=== PATIENT | male | born 1945 | race Caucasian/White ===

== ENCOUNTER 2017-08-01 11:52 | Emergency (ER) | payer BC, MEDICARE ==
[2017-08-01] MEDS ORDERED: CEPHALEXIN 500 MG CAPSULE PO STA (12:02)
--- NOTE | 2017-08-01 12:09 | Emergency Department Record ---
History of Present Illness - General Stated complaint: INJ RT HAND Time Seen by Provider: 08/01/17 12:01 Source: Patient Mode of Arrival: Ambulatory Limitations: No limitations - History of Present Illness Initial comments: 72 yo male injured his right thumb and index finger just prior to arrival. He was using a table saw and a board kicked back into his thumb and index causing a laceration. No changes in function or ROM on the fingers. He is up to date on immunizations. MD Complaint: Joint pain, Other (Right thumb and index finger injury) -: Minutes(s) Location: Right History of Same: No Radiation: Distal Quality: Aching Consistency: Constant Improves with: Nothing Worsens with: Nothing Associated Symptoms: Denies other symptoms - Related Data Allergies Allergy/AdvReac Type Severity Reaction Status Date / Time pneumococcal vaccine AdvReac feels sick Verified 08/01/17 12:10 Review of Systems Constitutional: Denies: Chills, Fever, Malaise Eyes: Denies: Eye discharge ENT: Denies: Congestion, Throat pain Respiratory: Denies: Cough Cardiovascular: Denies: Chest pain, Syncope Endocrine: Denies: Fatigue Gastrointestinal: Denies: Abdominal pain, Diarrhea, Nausea, Vomiting Genitourinary: Denies: Dysuria, Frequency Musculoskeletal: Reports: Arthralgia, Joint swelling Skin: Reports: Other (laceration). Denies: Bruising, Change in color Neurological: Denies: Headache Psychiatric: Denies: Anxiety Hematological/Lymphatic: Denies: Blood Clots, Easy bleeding, Easy bruising, Swollen glands Past Medical History - SOCIAL HISTORY Smoking Status: Never smoker Drug Use: None - RESPIRATORY Hx Respiratory Disorders: No - CARDIOVASCULAR Hx Cardio Disorders: Yes Hx Hypertension: Yes - NEURO Hx Neuro Disorders: No - GI Hx GI Disorders: No - Hx Genitourinary Disorders: No - ENDOCRINE Hx Endocrine Disorders: No - MUSCULOSKELETAL Hx Musculoskeletal Disorders: No - PSYCH Hx Psych Problems: No - HEMATOLOGY/ONCOLOGY Hx Hematology/Oncology Disorders: No Physical Exam - General General Appearance: Alert, Oriented x3, Cooperative, No acute distress Limitations: No limitations - Head Head exam: Atraumatic, Normal inspection - Eye Eye exam: Normal appearance. negative: Conjunctival injection - ENT ENT exam: Normal exam Ear exam: Normal external inspection Nasal Exam: Normal inspection Mouth exam: Normal external inspection - Neck Neck exam: Normal inspection - Cardiovascular Cardiovascular Exam: Regular rate, Normal rhythm, Normal heart sounds Peripheral Pulses: 2+: Radial (R) - Rectal Rectal exam: Deferred - exam: Deferred - Extremities Extremities exam: Other (thumb laceration 2cm, index laceration 1.5cm). negative: Normal inspection - Back Back exam: Reports: Normal inspection - Neurological Neurological exam: Alert, Normal gait, Oriented X3, Reflexes normal - Psychiatric Psychiatric exam: Normal affect, Normal mood Course - Reevaluation(s) Reevaluation #1: 08/01/17 13:17 XR demonstrated non displaced fractures of the first and second fingers The patient has had multiple surgeries by Dr Gonzalez in the past Given the open fractures Dr Gonzalez was paged or environmental field professional for him 08/01/17 13:[address] Gonzalez. He is not in town or available. He does recommend wash out in the OR. 08/01/17 13:30 The patient requests [facility] for transfer. No environmental field professional for hand surgery at [facility] per Dr Mckeon [facility] ED will be contacted I SW Dr Keating. No on-call hand surgery at [facility] today I called [facility]. Hand surgery has multiple traumas that will not allow timely care and recommends other institution. 08/01/17 13:55 I Called [facility] ED He is accepted for transfer by dr Castellanos at [facility] for evaluation and hand surgery consultation The patient has been kept NPO, Given antibiotics, and the wounds were thoroughly cleaned and dressed. XR's were sent with the patient He is stable for transfer by car. Disposition Disposition: Transfer Clinical Impression: Open fracture Thumb laceration Qualifiers: Encounter type: initial encounter Damage to nail status: with damage Foreign body presence: without foreign body Laterality: right Qualified Code(s): S61.111A - Laceration without foreign body of right thumb with damage to nail, initial encounter Laceration of index finger Qualifiers: Encounter type: initial encounter Damage to nail status: with damage Foreign body presence: without foreign body Laterality: right Qualified Code(s): S61.310A - Laceration without foreign body of right index finger with damage to nail, initial encounter Disposition: Acute Care Hospital Transfer Transfer To: [facility] Reason For Transfer: Open finger fractures Accepting Physician: Emanuel Time Discussed w/Accepting Physician: 14:08 Condition: (1) Good Additional Instructions: Go directed to the [facility] ED for evaluation Do not eat or drink Forms: Patient Portal Access Time of Disposition: 13:59 Quality - Quality Measures Quality Measures: N/A - Blood Pressure Screening Does Patient Have Any of the Following: No Blood Pressure Classification: Pre-Hypertensive BP Reading Systolic Measurement: 159 Diastolic Measurement: 86 Screening for High Blood Pressure: < Pre-Hypertensive BP, F/U Documented > [ G8950] Pre-Hypertensive Follow-up Interventions: Referral to alternative/primary care provider.
--- NOTE | 2017-08-02 08:55 | RADIOLOGY REPORT ---
DATE: 08/01/2017 at 12:38 p.m. EXAM: RIGHT HAND. HISTORY: Laceration to the first and second digits. Evaluate for wood splinters/foreign bodies. TECHNIQUE: Three views of the right hand were obtained. COMPARISON: None. ENCOUNTER: Initial. FINDINGS: There is soft tissue laceration involving the distal aspects of the thumb and index finger at the level of the distal phalanges. There is a nondisplaced transverse fracture at the base of the first distal phalanx. There is a nondisplaced oblique fracture within the midshaft of the second distal phalanx. There is overlying soft tissue laceration consistent with open fractures. There is no visible foreign body. Bandage material overlies the thumb and index finger. There are mild, diffuse arthritic changes within the hand and first carpometacarpal joint. IMPRESSION: 1. SOFT TISSUE LACERATION INVOLVING THE DISTAL THUMB AND INDEX FINGER WITH NO VISIBLE FOREIGN BODY. 2. NONDISPLACED TRANSVERSE FRACTURE AT THE BASE OF THE FIRST DISTAL PHALANX AND NONDISPLACED OBLIQUE FRACTURE WITHIN THE MIDSHAFT OF THE SECOND DISTAL PHALANX. THERE IS OVERLYING SOFT TISSUE LACERATION CONSISTENT WITH OPEN FRACTURES. JOB NUMBER: [id number] [facility]
== END 2017-08-01 14:27 | disposition short-term general hospital (02) ==
LOC: ER 11:52
DX: S62.524B Nondisplaced fracture of distal phalanx of right thumb, initial encounter for open fracture (principal); S62.660B Nondisplaced fracture of distal phalanx of right index finger, initial encounter for open fracture; W31.2XXA Contact with powered woodworking and forming machines, initial encounter; I10 Essential (primary) hypertension; Z87.891 Personal history of nicotine dependence
CPT/HCPCS: 99285

== ENCOUNTER 2017-08-03 09:42 | Emergency (ER) | payer MEDICARE ==
--- NOTE | 2017-08-03 09:52 | Emergency Department Record ---
History of Present Illness - General Stated Complaint: RECHECK HAND Time Seen by Provider: 08/03/17 09:51 Source: Patient, Family Mode of Arrival: Ambulatory Limitations: No limitations - History of Present Illness Initial Commments: 72 yo male presents for a recheck of a thumb and index finger injury. He lacerated the index and thumb with the kick back of a board on a table saw. He had open fractures and was sent to [facility] for hand surgery evaluation. He is on antibiotics. He reports he was not able to get into his local hand surgeon today and his PCP requested a recheck in the ED. The patient denies fever and his pain is controlled. -: Days(s) (2) Extremity Location: Right: Hand Place: Home Context: Accidental Associated Symptoms: None Treatments Prior to Arrival: Bandage - Naseem Coma Scale Eye Response: (4) Open spontaneously Motor Response: (6) Obeys commands Verbal Response: (5) Oriented [place] Total: 15 - Related Data Hx Tetanus Toxoid Vaccination: Yes Year of Tetanus Vaccination: 2015 Allergies Allergy/AdvReac Type Severity Reaction Status Date / Time pneumococcal vaccine AdvReac feels sick Verified 08/01/17 12:10 Review of Systems Constitutional: Denies: Chills, Fever, Weakness Eyes: Denies: Eye discharge ENT: Denies: Congestion, Throat pain Respiratory: Denies: Cough Cardiovascular: Denies: Chest pain, Syncope Endocrine: Denies: Fatigue Gastrointestinal: Denies: Abdominal pain, Diarrhea, Nausea, Vomiting Genitourinary: Denies: Dysuria, Frequency Musculoskeletal: Reports: As per HPI, Arthralgia Skin: Reports: As per HPI. Denies: Bruising Neurological: Denies: Headache Psychiatric: Denies: Anxiety Hematological/Lymphatic: Denies: Blood Clots, Easy bleeding, Easy bruising, Swollen glands Past Medical History - SOCIAL HISTORY Smoking Status: Never smoker Drug Use: None - RESPIRATORY Hx Respiratory Disorders: No - CARDIOVASCULAR Hx Cardio Disorders: Yes Hx Hypertension: Yes - NEURO Hx Neuro Disorders: No - GI Hx GI Disorders: No - Hx Genitourinary Disorders: No - ENDOCRINE Hx Endocrine Disorders: No - MUSCULOSKELETAL Hx Musculoskeletal Disorders: No - PSYCH Hx Psych Problems: No - HEMATOLOGY/ONCOLOGY Hx Hematology/Oncology Disorders: No Family Medical History Family Hx Comment (NOT TO BE USED IN PLACE OF ITEMS BELOW): Mom - Parkinsons Physical Exam - General General Appearance: Alert, Oriented x3, Cooperative, No acute distress Limitations: No limitations - Head Head exam: Atraumatic, Normal inspection - Eye Eye exam: Normal appearance. negative: Conjunctival injection, Scleral icterus - ENT ENT exam: Normal exam Ear exam: Normal external inspection Nasal Exam: Normal inspection Mouth exam: Normal external inspection - Neck Neck exam: Normal inspection - Cardiovascular Cardiovascular Exam: Regular rate, Normal rhythm, Normal heart sounds Peripheral Pulses: 2+: Radial (R) - Rectal Rectal exam: Deferred - exam: Deferred - Extremities Extremities exam: Tenderness Image of Hand: 1 - mild thumb bruising and mild swelling from trauma, no abnormal warmth or redness, no pus or signs of infection. - Neurological Neurological exam: Alert, Oriented X3 - Psychiatric Psychiatric exam: Normal affect, Normal mood - Skin Skin exam: Dry, Intact, Normal color, Warm Course - Reevaluation(s) Reevaluation #1: The wounds were thoroughly cleaned and redressed No signs of infection at this time We discussed the follow up next available with his hand surgeon 08/03/17 16:36 The chart was referred was faxed as a referral to Dr Gonzalez 08/03/17 16:37 Disposition Disposition: Discharge Clinical Impression: Encounter for wound re-check Disposition: Home, Self-Care Condition: (1) Good Additional Instructions: Call and follow up with Dr Montanez next available appointment Continue your antibiotics Forms: Patient Portal Access Time of Disposition: 10:13 Quality - Quality Measures Quality Measures: N/A - Blood Pressure Screening Does Patient Have Any of the Following: Active Dx of HTN Blood Pressure Classification: Hypertensive Reading Systolic Measurement: 178 Diastolic Measurement: 106 Screening for High Blood Pressure: Patient Exclusion, Hx of HTN [G9744]
== END 2017-08-03 10:50 | disposition home or self-care (01) ==
LOC: ER 09:42
DX: S61.011D Laceration without foreign body of right thumb without damage to nail, subsequent encounter (principal)
CPT/HCPCS: 99282

== ENCOUNTER 2018-12-04 11:27 | Emergency (ER) | payer MEDICARE ==
--- NOTE | 2018-12-04 12:56 | Emergency Department Record ---
History of Present Illness - General Chief Complaint: Laceration(s) Stated Complaint: RT HAND LACERATION Time Seen by Provider: 12/04/18 11:50 Source: Patient Mode of Arrival: Ambulatory Limitations: No limitations - History of Present Illness Initial Commments: pt cut R hand on a nail Onset/Timin -: Minutes(s) Extremity Location: Right: Hand Place: Home Context: Accidental Treatments Prior to Arrival: Bandage - [place] Coma Scale Eye Response: (4) Open spontaneously Motor Response: (6) Obeys commands Verbal Response: (5) Oriented Nase[place] Total: 15 - Related Data Hx Tetanus Toxoid Vaccination: Yes Year of Tetanus Vaccination: 2016 Patient Tetanus UTD (within 5 yrs): Yes Home Medications Medication Instructions Recorded Confirmed Last Taken Amlodipine Besylate [Norvasc] 5 mg PO DAILY 12/04/18 12/04/18 12/04/18 Clonidine HCl 0.1 mg PO ASDIR 12/04/18 12/04/18 12/04/18 Losartan/Hydrochlorothiazide 1 tab PO DAILY 12/04/18 12/04/18 12/04/18 [Losartan-Hctz 100-25 mg Tab] Allergies Allergy/AdvReac Type Severity Reaction Status Date / Time pneumococcal vaccine AdvReac feels sick Verified 12/04/18 11:40 Travel Screening - Travel/Exposure Within Last 30 Days Have you traveled within the last 30 days?: No - Travel/Exposure Within Last Year Have you traveled outside the [place] in the last year?: No - Additonal Travel Details Have you been exposed to anyone with a communicable illness?: No - Travel Symptoms Symptom Screening: None Review of Systems Reviewed: No additional complaints except as noted below Constitutional: Reports: As per HPI. Denies: Chills, Fever, Malaise, Night sweats, Weakness, Weight change Eyes: Reports: As per HPI. Denies: Eye discharge, Eye pain, Photophobia, Vision change ENT: Reports: As per HPI. Denies: Congestion, Dental pain, Ear pain, Epistaxis, Hearing loss, Throat pain Respiratory: Reports: As per HPI. Denies: Cough, Dyspnea, Hemoptysis, Stridor, Wheezes Cardiovascular: Reports: As per HPI. Denies: Arrhythmia, Chest pain, Dyspnea on exertion, Edema, Murmurs, Orthopnea, Palpitations, Paroxysmal nocturnal dyspnea, Rheumatic Fever, Syncope Endocrine: Reports: As per HPI. Denies: Fatigue, Heat or cold intolerance, Polydipsia, Polyuria Gastrointestinal: Reports: As per HPI. Denies: Abdominal pain, Constipation, Diarrhea, Hematemesis, Hematochezia, Melena, Nausea, Vomiting Genitourinary: Reports: As per HPI. Denies: Dysuria, Frequency, Hematuria, Incontinence, Retention, Testicular pain, Testicular mass, Urgency Musculoskeletal: Reports: As per HPI. Denies: Arthralgia, Back pain, Gout, Joint swelling, Myalgia, Neck pain Skin: Reports: As per HPI. Denies: Bruising, Change in color, Change in hair/nails, Lesions, Pruritus, Rash Neurological: Reports: As per HPI. Denies: Abnormal gait, Confusion, Headache, Numbness, Paresthesias, Seizure, Tingling, Tremors, Vertigo, Weakness Psychiatric: Reports: As per HPI. Denies: Anxiety, Auditory hallucinations, Depression, Homicidal thoughts, Suicidal thoughts, Visual hallucinations Hematological/Lymphatic: Reports: As per HPI. Denies: Anemia, Blood Clots, Easy bleeding, Easy bruising, Swollen glands Past Medical History - SOCIAL HISTORY Smoking Status: Never smoker Alcohol Use: None Drug Use: None - RESPIRATORY Hx Respiratory Disorders: No - CARDIOVASCULAR Hx Cardio Disorders: Yes Hx Hypertension: Yes - NEURO Hx Neuro Disorders: No - GI Hx GI Disorders: No - Hx Genitourinary Disorders: Yes Hx Renal Disease: Yes (stage 3) - ENDOCRINE Hx Endocrine Disorders: No - MUSCULOSKELETAL Hx Musculoskeletal Disorders: Yes Hx Gout: Yes - PSYCH Hx Psych Problems: No - HEMATOLOGY/ONCOLOGY Hx Hematology/Oncology Disorders: No Family Medical History Any Significant Family History?: Yes Family Hx Comment (NOT TO BE USED IN PLACE OF ITEMS BELOW): Mom - Parkinsons Physical Exam - General General Appearance: Alert, Oriented x3, Cooperative, No acute distress - Head Head exam: Normal inspection - Eye Eye exam: Normal appearance, PERRL, EOMI Pupils: Normal accommodation - ENT ENT exam: Normal exam, Mucous membranes moist, Normal external ear exam, Normal orophraynx Ear exam: Normal external inspection. negative: External canal tenderness Nasal Exam: Normal inspection. negative: Discharge, Sinus tenderness Mouth exam: Normal external inspection, Tongue normal Teeth exam: Normal inspection. negative: Dental caries Throat exam: Normal inspection. negative: Tonsillar erythema, Tonsillar exudate - Neck Neck exam: Normal inspection, Full ROM. negative: Tenderness - Respiratory Respiratory exam: Normal lung sounds bilaterally. negative: Respiratory distress - Cardiovascular Cardiovascular Exam: Regular rate, Normal rhythm, Normal heart sounds - GI/Abdominal GI/Abdominal exam: Soft, Normal bowel sounds. negative: Tenderness - Rectal Rectal exam: Deferred - exam: Deferred - Extremities Extremities exam: Normal inspection, Full ROM, Normal capillary refill, Tenderness Image of Hand: 1 - 3.5cm lac - Back Back exam: Reports: Normal inspection, Full ROM. Denies: Muscle spasm, Rash noted, Tenderness - Neurological Neurological exam: Alert, CN II-XII intact, Normal gait, Oriented X3 - Psychiatric Psychiatric exam: Normal affect, Normal mood - Skin Skin exam: Dry, Intact, Normal color, Warm Type of lesion: Laceration Distribution of rash: RUE Course Vital Signs 12/04/18 11:43 Temperature 97.7 F Pulse Rate 57 L Respiratory 18 Rate Blood Pressure 123/69 Pulse Ox 98 Disposition Disposition: Discharge Clinical Impression: Laceration of hand Qualifiers: Encounter type: initial encounter Foreign body presence: without foreign body Laterality: right Qualified Code(s): S61.411A - Laceration without foreign body of right hand, initial encounter Disposition: Home, Self-Care Condition: (1) Good Instructions: Laceration (ED), Care For Your Stitches (ED) Additional Instructions: follow up with family doctor. return sooner if worse. stitches out in 10 days Quality - Quality Measures Quality Measures: N/A - Blood Pressure Screening Does Patient Have Any of the Following: No Blood Pressure Classification: Pre-Hypertensive BP Reading Systolic Measurement: 123 Diastolic Measurement: 69 Screening for High Blood Pressure: < Pre-Hypertensive BP, F/U Documented > [G8950] Pre-Hypertensive Follow-up Interventions: Follow-up with rescreen every year. Laceration - Other - Time Out Informed consent:: Informed consent obtained Confirmed first & last name, , procedure, correct site?: Yes - Location Location of laceration:: Right, Palmar Laceration located on:: Hand Length of laceration:: 3.5 Length of laceration:: cm - Clean and Prep Laceration cleaning method:: Cleansed, Copious Irrigation Laceration cleaning agent:: Normal SalineChelsie - Local Anesthetic Lidocaine used:: 1% Lidocaine dose:: 2 mL EMLA cream used?: No - Medication Medicated for procedure?: No - Procedural Detail Tissue detail:: Torn Foreign body in the wound?: No Undermining was preformed?: No Stent applied?: No [place] applied?: No Retention suture(s) applied?: No Skin suture pattern:: Interrupted Suture material/size:: 5-0: Nylon Number of skin sutures:: 7 Neurovascular intact?: Yes - Post Procedural Detail Complications:: No Procedure Tolerated by Patient:: Well
== END 2018-12-04 13:30 | disposition home or self-care (01) ==
LOC: ER 11:27
DX: S61.411A Laceration without foreign body of right hand, initial encounter (principal); I10 Essential (primary) hypertension; W45.0XXA Nail entering through skin, initial encounter
CPT/HCPCS: 12002; 99283

== ENCOUNTER 2018-12-14 09:52 | Emergency (ER) | payer MEDICARE ==
--- NOTE | 2018-12-14 09:57 | Emergency Department Record ---
History of Present Illness - General Stated Complaint: SUTURE REMOVAL Time Seen by Provider: 12/14/18 09:53 Source: Patient Mode of arrival: Ambulatory Limitations: No limitations - History of Present Illness Initial Comments: 73 yo male presents for suture removal on the right hand from a 12/04 injury. No complaints with healing. No concerns with infection. MD Complaint: Suture/staple removal, Wound re-check -: Days(s) Initial Visit For: Laceration Returns Today for: Staple/stitch removal, Wound recheck Symptoms Since Prior Visit: No new symptoms Associated Symptoms: None - Related Data Allergies Allergy/AdvReac Type Severity Reaction Status Date / Time pneumococcal vaccine AdvReac feels sick Verified 12/04/18 11:40 Review of Systems Constitutional: Denies: Chills, Fever Respiratory: Denies: Cough Gastrointestinal: Denies: Diarrhea, Nausea, Vomiting Musculoskeletal: Denies: Arthralgia, Myalgia Skin: Denies: Bruising, Change in color, Rash Neurological: Denies: Numbness, Tingling Hematological/Lymphatic: Denies: Easy bleeding, Easy bruising Past Medical History - SOCIAL HISTORY Smoking Status: Never smoker Drug Use: None - RESPIRATORY Hx Respiratory Disorders: No - CARDIOVASCULAR Hx Cardio Disorders: Yes Hx Hypertension: Yes - NEURO Hx Neuro Disorders: No - GI Hx GI Disorders: No - Hx Genitourinary Disorders: Yes Hx Renal Disease: Yes (stage 3) - ENDOCRINE Hx Endocrine Disorders: No - MUSCULOSKELETAL Hx Musculoskeletal Disorders: Yes Hx Gout: Yes - PSYCH Hx Psych Problems: No - HEMATOLOGY/ONCOLOGY Hx Hematology/Oncology Disorders: No Family Medical History Family Hx Comment (NOT TO BE USED IN PLACE OF ITEMS BELOW): Mom - Parkinsons Physical Exam - General General Appearance: Alert, Oriented x3, Cooperative, No acute distress Limitations: No limitations - Head Head exam: Atraumatic, Normal inspection - ENT ENT exam: Normal exam Ear exam: Normal external inspection Nasal Exam: Normal inspection Mouth exam: Normal external inspection - Neck Neck exam: Normal inspection - Cardiovascular Peripheral Pulses: 2+: Radial (R) - Rectal Rectal exam: Deferred - exam: Deferred - Extremities Extremities exam: Full ROM, Other (Healing laceration without complications). negative: Joint swelling, Tenderness - Neurological Neurological exam: Alert, Oriented X3 - Psychiatric Psychiatric exam: Normal affect, Normal mood - Skin Skin exam: Dry, Intact, Normal color, Warm Course - Reevaluation(s) Reevaluation #1: 12/14/18 09:56 Healing without complication Sutures removed without difficulty Disposition Disposition: Discharge Clinical Impression: Encounter for removal of sutures Disposition: Home, Self-Care Condition: (1) Good Instructions: Stitches Removal (ED) Additional Instructions: Return if you have any concerns with the continues healing of the hand Forms: Patient Portal Access Time of Disposition: 09:56 Quality - Quality Measures Quality Measures: N/A - Blood Pressure Screening Does Patient Have Any of the Following: Active Dx of HTN Blood Pressure Classification: Pre-Hypertensive BP Reading Systolic Measurement: 122 Diastolic Measurement: 64 Screening for High Blood Pressure: Patient Exclusion, Hx of HTN [G9744]
== END 2018-12-14 10:15 | disposition home or self-care (01) ==
LOC: ER 09:52
DX: Z48.02 Encounter for removal of sutures (principal)

== ENCOUNTER 2019-01-14 12:18 | Emergency (ER) | payer MEDICARE ==
[2019-01-14] MEDS ORDERED: TOPICAL LIDOCAINE W/ EPI 5 ML TOP ONE (12:35)
--- NOTE | 2019-01-14 12:41 | Emergency Department Record ---
History of Present Illness - General Chief Complaint: Fall Injury Stated Complaint: FALL Time Seen by Provider: 01/14/19 12:24 Source: Patient Mode of Arrival: Ambulatory Limitations: No limitations - History of Present Illness Initial Comments: The patient is here due to falling 4 feet off a ladder about an hour ago. He is not sure why he fell but does not believe he passed out. The patient has a hx of hypotension and does get lightheaded frequently. The patient denies hitting his head or having any neck pain or any LOC. The patient also denies any CP, SOB, or sweating prior or since falling but he is having R posterior rib pain and mild L wrist pain. He did hit his face during the fall and did sustain a small laceration to his L upper lip. His Td is UTD. MD Complaint: Fall Onset/Timin -: Minutes(s) Fall From: From height (distance) When Fall Occurred: Just prior to arrival Fall Witnessed: Yes, by family Place Fall Occurred: Other Loss of Consciousness: None Prolonged Down Time?: No Symptoms Prior to Fall: None Location: Face, Mouth Severity: Mild Severity scale (1-10): 4 Quality: Aching Associated Symptoms: Denies - [place] Com[place] Scale Eye Response: (4) Open spontaneously Motor Response: (6) Obeys commands Verbal Response: (5) Oriented [place] Total: 15 - Related Data Home Medications Medication Instructions Recorded Confirmed Last Taken Losartan Potassium 50 mg PO DAILY 01/14/19 01/14/19 Unknown Previous Rx's Medication Instructions Recorded Amoxicillin 500 mg PO TID #9 capsule 01/14/19 Allergies Allergy/AdvReac Type Severity Reaction Status Date / Time pneumococcal vaccine AdvReac feels sick Verified 01/14/19 12:28 Travel Screening - Travel/Exposure Within Last 30 Days Have you traveled within the last 30 days?: No Review of Systems Constitutional: Denies: Chills, Fever Eyes: Denies: Eye discharge ENT: Denies: Congestion Respiratory: Denies: Cough, Dyspnea Past Medical History - SOCIAL HISTORY Smoking Status: Never smoker Alcohol Use: None Drug Use: None - RESPIRATORY Hx Respiratory Disorders: No - CARDIOVASCULAR Hx Cardio Disorders: Yes Hx Hypertension: Yes - NEURO Hx Neuro Disorders: No - GI Hx GI Disorders: No - Hx Genitourinary Disorders: Yes Hx Renal Disease: Yes (stage 3) - ENDOCRINE Hx Endocrine Disorders: No - MUSCULOSKELETAL Hx Musculoskeletal Disorders: Yes Hx Gout: Yes - PSYCH Hx Psych Problems: No - HEMATOLOGY/ONCOLOGY Hx Hematology/Oncology Disorders: No Family Medical History Any Significant Family History?: No Family Hx Comment (NOT TO BE USED IN PLACE OF ITEMS BELOW): Mom - Parkinsons Physical Exam - General General Appearance: Alert, Oriented x3, Cooperative, No acute distress - Head Head exam: Atraumatic, Normocephalic, Normal inspection Image of Face/Head: 1 - 1 cm lac. - Eye Eye exam: Normal appearance, PERRL - ENT ENT exam: negative: Normal exam Teeth exam: negative: Dental tenderness # (There is no dental tenderness or loose teeth.) Throat exam: Normal inspection. negative: Tonsillar erythema, Tonsillar exudate - Neck Neck exam: Normal inspection, Full ROM. negative: Meningismus, Tenderness (There is no Cspine tenderness to palpation. The patient has normal cervical flexion and extension with no pain.) - Respiratory Respiratory exam: Normal lung sounds bilaterally, Chest wall tenderness (There is R posterior inferior rib tenderness.). negative: Respiratory distress - Cardiovascular Cardiovascular Exam: Regular rate, Normal rhythm, Normal heart sounds - GI/Abdominal GI/Abdominal exam: Soft, Normal bowel sounds. negative: Tenderness - Extremities Extremities exam: Normal inspection, Full ROM, Normal capillary refill, Tenderness (There is mild L wrist tenderness mainly over the mid dorsal carpals. There is pain with full wrist extension.). negative: Pedal edema Image of Full Body: 1 - Area of rib pain and tenderness. Image of Hand: 1 - Area of pain and tenderness. - Back Back exam: Reports: Normal inspection. Denies: Paraspinal tenderness, Vertebral tenderness - Neurological Neurological exam: Alert, Normal gait, Oriented X3. negative: Abnormal gait, Altered, Motor sensory deficit - Skin Skin exam: negative: Rash Course Vital Signs 01/14/19 12:23 Pulse Rate 51 L Respiratory 18 Rate Blood Pressure 132/70 Pulse Ox 98 - Reevaluation(s) Reevaluation #1: Procedure note: The L lip lac was anesth. with 1 cc Lido 1%. The lac was cleansed with betadine and sterile saline. The lac was superficial and clearly does not communicate with the inner mucosa lac. The lac was closed with 3 5.0 nylon sutures. There were no complications. 01/14/19 13:24 Reevaluation #2: The patient is doing very well at this time and denies any QURESHI, neck pain, mid back pain, AP or SOB. He ONLY has R rib pain with movement. I did discuss the wrist xrays and larson believe the patient has a Triquetral fx so we will splint the patient and have his F/U with one of his hand surgeons. 01/14/19 14:08 Reevaluation #3: The patient is doing very well at discharge. He is up walking with no problems or any pain. 01/14/19 14:24 Medical Decision Making - Data Complexity MDM Data: Labs Ordered and/or Reviewed, X-Ray Ordered and/or Reviewed, EKG Orde red and/or Reviewed - Lab Data Result diagrams: 01/14/19 12:45 01/14/19 12:45 - EKG Data -: EKG Interpreted by Me EKG: No Acute Changes (NSR at 55, neg ST-T changes, Pos PVC.) - Radiology Data Radiology results: Report reviewed (R ribs: Neg L wrist: poss triquetral fx.) Disposition Disposition: Discharge Clinical Impression: Laceration of lip Qualifiers: Encounter type: initial encounter Qualified Code(s): S01.511A - Laceration wi thout foreign body of lip, initial encounter Triquetral chip fracture Qualifiers: Encounter type: initial encounter Fracture type: closed Laterality: left Qualified Code(s): S62.112A - Displaced fracture of triquetrum [cuneiform] bone, left wrist, initial encounter for closed fracture Disposition: Home, Self-Care Condition: (2) Stable Instructions: Laceration (ED), Wrist Fracture in Adults (ED) Additional Instructions: Please take Tylenol for pain and rest. Please ice and elevate the L wrist when possible for the next 3 days. Keep the lip laceration dry for 2 days and then have the sutures removed in 5-7 days. Take the Amox. as directed and follow up with one of your hand surgeons next week. Return to the ER for any worsening symptoms or pain. Prescriptions: Amoxicillin 500 mg PO TID #9 capsule Forms: Patient Portal Access Time of Disposition: 14:12 Quality - Quality Measures Quality Measures: N/A - Blood Pressure Screening View Details: Yes Does Patient Have Any of the Following: No Blood Pressure Classification: Pre-Hypertensive BP Reading Systolic Measurement: 132 Diastolic Measurement: 70 Screening for High Blood Pressure: < Pre-Hypertensive BP, F/U Documented > [G8950] Pre-Hypertensive Follow-up Interventions: Referral to alternative/primary care provider.
[2019-01-14 12:54] LABS: ABSOLUTE NEUTROPHIL COUNT 4.46; BASO % 0.4 % (0-6); EOS % 6.2 % (0-6); GRAN % 64.3 % (47-80); HEMATOCRIT 36.9 % (42.0-52.0); HEMOGLOBIN 12.8 gm/dl (14.0-18.0); LYMPH % 18.3 % (16-45); MEAN CELL VOLUME 85.4 fl (81-97); MEAN CORPUSCULAR HEMOGLOBIN 29.6 pg (27-33); MEAN CORPUSCULAR HGB CONC 34.7 g/dl (32-36); MEAN PLATELET VOLUME 8.8 fl (7.4-10.4); MONO % 10.8 % (0-9); PLATELET COUNT 224 K/uL (130-400); RED BLOOD COUNT 4.32 M/uL (4.40-5.70); RED CELL DISTRIBUTION WIDTH 13.5 % (11.5-14.5); WHITE BLOOD COUNT W/O DIFF 6.9 K/uL (4.2-12.2)
[2019-01-14 13:05] LABS: BILIRUBIN,TOTAL 0.5 mg/dL (0.2-1.0); CREATININE 1.7 mg/dL (0.7-1.2); TOTAL PROTEIN 7.1 g/dL (6.6-8.7)
[2019-01-14 13:10] LABS: ALB/GLOB RATIO 1.4 (1.1-1.8); ALBUMIN 4.2 g/dL (4.0-5.0)
--- NOTE | 2019-01-17 08:33 | RADIOLOGY REPORT ---
EXAM: LEFT WRIST, THREE VIEWS HISTORY: FALL. LEFT WRIST PAIN. TECHNIQUE: AP, oblique and lateral views of the left wrist were obtained. Comparison: None. Encounter: Initial. FINDINGS: There is normal bone mineralization. On the oblique view there is subtle linear lucency near the dorsal medial margin of the triquetrum. A nondisplaced fracture is difficult to exclude. Correlation with physical examination for point tenderness in this region is recommended. Otherwise, no convincing evidence of fracture nor dislocation. There are mild degenerative changes scattered throughout the wrist and visualized hand. There is a small well corticated ossific density projecting near the dorsal margin of the junction of the proximal and distal carpal rows. Mild posterior soft tissue swelling is possible. IMPRESSION: 1. ON THE OBLIQUE VIEW THERE IS SUBTLE LUCENCY NEAR THE DORSAL MEDIAL CORTEX OF THE TRIQUETRUM. NONDISPLACED FRACTURE NOT EXCLUDED. NO OTHER OSSEOUS EVIDENCE OF FRACTURE. CORRELATION WITH PHYSICAL EXAMINATION IS RECOMMENDED. 2. CHRONIC APPEARING OSSIFIC DENSITY PROJECTING NEAR THE DORSAL MARGIN OF THE JUNCTION OF THE PROXIMAL AND DISTAL CARPAL ROWS. 3. MILD DIFFUSE DEGENERATIVE CHANGES. JOB NUMBER: [id number] [facility]
--- NOTE | 2019-01-17 08:38 | RADIOLOGY REPORT ---
EXAM: RIGHT RIBS WITH PA CHEST HISTORY: PAIN IN POSTERIOR LOWER RIGHT RIBS. TECHNIQUE: AP and oblique views of the right ribs are obtained. A PA view of the chest was also obtained. Comparison: None. FINDINGS: There is normal bone mineralization. No definite acute right rib fracture. No lytic or blastic bone lesion. Degenerative end plate changes are scattered throughout the visualized spine. Facet degenerative changes are noted within the visualized lower lumbar spine. The heart is not enlarged and the pulmonary vasculature is nondilated. The lungs and pleural spaces are clear with the exception of mild biapical pleural and parenchymal scarring. IMPRESSION: 1. NO DEFINITE ACUTE RIGHT RIB FRACTURE. 2. NO EVIDENCE OF ACUTE CARDIOPULMONARY DISEASE. JOB NUMBER: [id number] [facility]
== END 2019-01-14 14:33 | disposition home or self-care (01) ==
LOC: ER 12:18
DX: S62.112A Displaced fracture of triquetrum [cuneiform] bone, left wrist, initial encounter for closed fracture (principal); S01.511A Laceration without foreign body of lip, initial encounter; R07.81 Pleurodynia; W11.XXXA Fall on and from ladder, initial encounter; I10 Essential (primary) hypertension; I95.9 Hypotension, unspecified
CPT/HCPCS: 12011; 80053; 85025; 93005; 93010; 99284

== ENCOUNTER 2019-01-19 08:34 | Emergency (ER) | payer MEDICARE ==
--- NOTE | 2019-01-19 08:50 | Emergency Department Record ---
History of Present Illness - General Chief Complaint: Suture removal Stated Complaint: STICH REMOVED Time Seen by Provider: 01/19/19 08:44 Source: Patient, RN notes reviewed Mode of arrival: Ambulatory - History of Present Illness Initial Comments: incision on face looks good MD Complaint: Suture/staple removal - Related Data Previous Rx's Medication Instructions Recorded Amoxicillin 500 mg PO TID #9 capsule 01/14/19 Allergies Allergy/AdvReac Type Severity Reaction Status Date / Time pneumococcal vaccine AdvReac feels sick Verified 01/14/19 12:28 Review of Systems Reviewed: No additional complaints except as noted below Constitutional: Reports: As per HPI. Denies: Chills, Fever, Malaise, Night sweats, Weakness, Weight change Eyes: Reports: As per HPI. Denies: Eye discharge, Eye pain, Photophobia, Vision change ENT: Reports: As per HPI. Denies: Congestion, Dental pain, Ear pain, Epistaxis, Hearing loss, Throat pain Respiratory: Reports: As per HPI. Denies: Cough, Dyspnea, Hemoptysis, Stridor, Wheezes Cardiovascular: Reports: As per HPI. Denies: Arrhythmia, Chest pain, Dyspnea on exertion, Edema, Murmurs, Orthopnea, Palpitations, Paroxysmal nocturnal dyspnea, Rheumatic Fever, Syncope Endocrine: Reports: As per HPI. Denies: Fatigue, Heat or cold intolerance, Polydipsia, Polyuria Gastrointestinal: Reports: As per HPI. Denies: Abdominal pain, Constipation, Diarrhea, Hematemesis, Hematochezia, Melena, Nausea, Vomiting Genitourinary: Reports: As per HPI. Denies: Dysuria, Frequency, Hematuria, Incontinence, Retention, Testicular pain, Testicular mass, Urgency Musculoskeletal: Reports: As per HPI. Denies: Arthralgia, Back pain, Gout, Joint swelling, Myalgia, Neck pain Skin: Reports: As per HPI. Denies: Bruising, Change in color, Change in hair/nails, Lesions, Pruritus, Rash Neurological: Reports: As per HPI. Denies: Abnormal gait, Confusion, Headache, Numbness, Paresthesias, Seizure, Tingling, Tremors, Vertigo, Weakness Psychiatric: Reports: As per HPI. Denies: Anxiety, Auditory hallucinations, Depression, Homicidal thoughts, Suicidal thoughts, Visual hallucinations Hematological/Lymphatic: Reports: As per HPI. Denies: Anemia, Blood Clots, Easy bleeding, Easy bruising, Swollen glands Past Medical History - SOCIAL HISTORY Smoking Status: Never smoker Drug Use: None - RESPIRATORY Hx Respiratory Disorders: No - CARDIOVASCULAR Hx Cardio Disorders: Yes Hx Hypertension: Yes - NEURO Hx Neuro Disorders: No - GI Hx GI Disorders: No - Hx Genitourinary Disorders: Yes Hx Renal Disease: Yes (stage 3) - ENDOCRINE Hx Endocrine Disorders: No - MUSCULOSKELETAL Hx Musculoskeletal Disorders: Yes Hx Gout: Yes - PSYCH Hx Psych Problems: No - HEMATOLOGY/ONCOLOGY Hx Hematology/Oncology Disorders: No Family Medical History Family Hx Comment (NOT TO BE USED IN PLACE OF ITEMS BELOW): Mom - Parkinsons Physical Exam - General General Appearance: Alert, Oriented x3, Cooperative, No acute distress - Head Head exam: Normal inspection - Eye Eye exam: Normal appearance, PERRL Pupils: Normal accommodation - ENT ENT exam: Normal exam, Mucous membranes moist, Normal external ear exam, Normal orophraynx, TM's normal bilaterally Ear exam: Normal external inspection. negative: External canal tenderness Nasal Exam: Normal inspection. negative: Discharge, Sinus tenderness Mouth exam: Normal external inspection, Tongue normal Teeth exam: Normal inspection. negative: Dental caries Throat exam: Normal inspection. negative: Tonsillar erythema, Tonsillar exudate - Neck Neck exam: Normal inspection, Full ROM. negative: Tenderness - Respiratory Respiratory exam: Normal lung sounds bilaterally. negative: Respiratory distress - Cardiovascular Cardiovascular Exam: Regular rate, Normal rhythm, Normal heart sounds - GI/Abdominal GI/Abdominal exam: Soft, Normal bowel sounds. negative: Tenderness - Rectal Rectal exam: Deferred - exam: Deferred - Extremities Extremities exam: Normal inspection, Full ROM, Normal capillary refill. negative: Tenderness - Back Back exam: Reports: Normal inspection, Full ROM. Denies: Muscle spasm, Rash noted, Tenderness - Neurological Neurological exam: Alert, Normal gait, Oriented X3, Reflexes normal - Psychiatric Psychiatric exam: Normal affect, Normal mood - Skin Skin exam: Dry, Intact, Normal color, Warm Course Vital Signs 01/19/19 08:43 Temperature 97.6 F Pulse Rate [ 55 L Right] Respiratory 20 Rate Blood Pressure 144/72 [Left Arm] Pulse Ox 99 - Reevaluation(s) Reevaluation #1: 01/19/19 08:47 No signs of infection and healing well Disposition Clinical Impression: Visit for suture removal Disposition: Home, Self-Care Condition: (1) Good Instructions: Stitches Removal (ED) Quality - Quality Measures Quality Measures: N/A - Blood Pressure Screening Does Patient Have Any of the Following: No, Active Dx of HTN Blood Pressure Classification: Hypertensive Reading Systolic Measurement: 144 Diastolic Measurement: 72 Screening for High Blood Pressure: Patient Exclusion, Hx of HTN [G9744]
== END 2019-01-19 08:58 | disposition home or self-care (01) ==
LOC: ER 08:34
DX: Z48.02 Encounter for removal of sutures (principal)

== ENCOUNTER 2019-04-18 12:34 | Day surgery (SDC) | payer MEDICARE ==
[2019-04-18] MEDS ORDERED: LIDOCAINE 2% MDV (20MG/ML) 20ML VIAL IV ONE (12:35)
[2019-04-18] MEDS ORDERED: MIDAZOLAM HCL 2MG/2ML VIAL IV ONE (12:35)
[2019-04-18] MEDS ORDERED: PROPOFOL 10 MG/ML VIAL IV ONE (12:35)
--- NOTE | 2019-04-19 11:20 | Operative Note ---
OPERATION: COLONOSCOPY to the cecum with cold snare polypectomy x3. INDICATION: Screening colonoscopy. Last examination was 2001. ANESTHESIA: Intravenous sedation was administered by the department of anesthesiology and included Diprivan titrated to effect. PROCEDURE: Following informed consent from this alert individual including a discussion of the risks and benefits of the procedure and an opportunity for the patient to ask questions, the patient was in the left lateral decubitus position. A digital rectal examination was performed. No abnormalities were noted. Following this, the Olympus HIP027 video colonoscope was inserted into the rectum without resistance. The rectal mucosa had a normal appearance with normal folds and distensibility. The sigmoid colon had a few small diverticula noted. The instrument was further advanced up to the level of the cecum without much difficulty. Throughout the bowel the mucosa appeared normal, the folds were normal, and the bowel was fairly well distensible. The cecum was well defined by noting the appendiceal orifice and ileocecal valve. Overall, the preparation was good. From the base of the cecum, the colonoscope was then withdrawn. There were 3 polyps noted on withdrawal, each measuring approximately 4 mm in size. One was in the cecum and 2 were in the sigmoid colon, all removed with cold snare polypectomy. No other changes were appreciated upon withdrawal. Retroflexion in the rectum did reveal some small internal hemorrhoids. The endoscope was straightened and removed. The patient tolerated the procedure well and was returned to the recovery area in stable condition. IMPRESSION: 1. One 4 mm cecal polyp and two 4 mm sigmoid polyps removed with cold snare polypectomy. 2. Very mild sigmoid diverticulosis. 3. Small internal hemorrhoids. RECOMMENDATIONS: Further recommendations will be forthcoming pending results of pathology obtained today. Followup will otherwise be with Dr. Archibald. As always, thank you for allowing me to participate in the care of your patient. THALIA
== END 2019-04-18 14:58 | disposition home or self-care (01) ==
LOC: HOP 12:34
PROVIDERS: ATTEND Internal Medicine Gastroenterology
DX: Z12.11 Encounter for screening for malignant neoplasm of colon (principal); D12.0 Benign neoplasm of cecum; K63.5 Polyp of colon; K57.30 Diverticulosis of large intestine without perforation or abscess without bleeding; K64.8 Other hemorrhoids; I10 Essential (primary) hypertension

== ENCOUNTER 2019-05-21 09:27 | Emergency (ER) | payer MEDICARE ==
--- NOTE | 2019-05-21 10:10 | Emergency Department Record ---
History of Present Illness - General Chief complaint: Extremity Problem Stated complaint: LT FOOT PAIN Time Seen by Provider: 05/21/19 10:04 Source: Patient, Family () Mode of Arrival: Ambulatory Limitations: No limitations - History of Present Illness Initial comments: Pt and from home with complaint of pain to the left foot without trauma or injury. Pt has hx of gout but htat was in his great toe. This pain is in entire left foot initially in the lateral aspect now the entire foot, not toes. No hx DM, no fever, no injury/laceration to foot or toes. No calf or leg pains. Pt has Stage 4 renal failure per his history so does not take NSAIDS. Onset/Timin -: Week(s) Location: Left, Foot History of Same: Yes Severity scale (1-10): 5 Quality: Sharp Consistency: Intermittent Improves with: Immobilization, Rest Worsens with: Walking, Weight bearing Associated Symptoms: Denies other symptoms - Related Data Previous Rx's Medication Instructions Recorded Hydrocodone/Acetaminophen [[place] 1 each PO Q4HR PRN 2 Days #8 tablet 05/21/19 5-325 Tablet] Prednisone [Prednisone 20Mg] 40 mg PO DAILY 5 Days #10 tab 05/21/19 Allergies Allergy/AdvReac Type Severity Reaction Status Date / Time pneumococcal vaccine AdvReac feels sick Verified 05/21/19 09:47 Travel Screening - Travel/Exposure Within Last 30 Days Have you traveled within the last 30 days?: Yes Location Detail:: [place] - Travel/Exposure Within Last Year Have you traveled outside the [place] in the last year?: No - Additonal Travel Details Have you been exposed to anyone with a communicable illness?: No - Travel Symptoms Symptom Screening: None Review of Systems Constitutional: Denies: Chills, Fever, Malaise Eyes: Denies: Photophobia ENT: Denies: Congestion, Throat pain Respiratory: Denies: Cough Cardiovascular: Denies: Arrhythmia, Chest pain, Syncope Endocrine: Denies: Fatigue Gastrointestinal: Denies: Abdominal pain, Nausea, Vomiting Genitourinary: Denies: Dysuria Musculoskeletal: Reports: As per HPI, Gout. Denies: Back pain Skin: Reports: Other (redness to left foot per HPI). Denies: Bruising Neurological: Reports: Abnormal gait (pain in foot ). Denies: Headache Psychiatric: Denies: Anxiety, Homicidal thoughts Hematological/Lymphatic: Denies: Anemia Past Medical History - SOCIAL HISTORY Smoking Status: Never smoker Alcohol Use: None Drug Use: None - RESPIRATORY Hx Respiratory Disorders: No Hx Sleep Apnea: Yes Hx of CPAP: Yes - CARDIOVASCULAR Hx Cardio Disorders: Yes Hx Abnormal EKG: Yes (low HR,holter monitor, awaiting results) Hx Hypertension: Yes - NEURO Hx Neuro Disorders: No - GI Hx GI Disorders: No Hx Ulcer: Yes (duodenal) - Hx Genitourinary Disorders: Yes Hx Prostate Problems: Yes (proctitis) Hx Renal Disease: Yes (stage 3) - ENDOCRINE Hx Endocrine Disorders: No - MUSCULOSKELETAL Hx Musculoskeletal Disorders: Yes Hx Arthritis: Yes Hx Gout: Yes - PSYCH Hx Psych Problems: No - HEMATOLOGY/ONCOLOGY Hx Hematology/Oncology Disorders: No Family Medical History Any Significant Family History?: Yes Family Hx Comment (NOT TO BE USED IN PLACE OF ITEMS BELOW): Mom - Parkinsons Physical Exam - General General Appearance: Alert, Oriented x3, Cooperative, No acute distress - Head Head exam: Normal inspection - Eye Eye exam: Normal appearance, PERRL - ENT ENT exam: Mucous membranes moist Ear exam: Normal external inspection Nasal Exam: Normal inspection - Neck Neck exam: Normal inspection, Full ROM. negative: Tenderness - Respiratory Respiratory exam: Normal lung sounds bilaterally. negative: Respiratory distress - Cardiovascular Cardiovascular Exam: Regular rate, Normal rhythm, Normal heart sounds - GI/Abdominal GI/Abdominal exam: Soft, Normal bowel sounds. negative: Tenderness - Extremities Extremities exam: Tenderness (left foot with erythema and warmth laterally across the dorsum of the midfoot. No pain at great toe. Very tender to touch in mid foot. No skin breaks noted between toes. ). negative: Calf tenderness, Full ROM - Back Back exam: Reports: Normal inspection - Neurological Neurological exam: Alert, Oriented X3. negative: Motor sensory deficit Course Vital Signs 05/21/19 09:48 Temperature 98 F Pulse Rate 73 Respiratory 20 Rate Pulse Ox 97 Medical Decision Making - Lab Data Result diagrams: 05/21/19 10:10 05/21/19 10:10 Disposition Disposition: Discharge Clinical Impression: Gout of left foot Qualifiers: Gout etiology: idiopathic Chronicity: acute Qualified Code(s): M10.072 - Idiopathic gout, left ankle and foot Disposition: Home, Self-Care Condition: (1) Good Instructions: Gout (ED) Additional Instructions: Use crutches as needed. Take Predisone with food as instructed. See your doctor in 2-3 days. Return to the ED as needed. Prescriptions: Hydrocodone/Acetaminophen [[place] 5-325 Tablet] 1 each PO Q4HR PRN 2 Days #8 tablet PRN Reason: Pain - Mod To Severe (5-10) Prednisone [Prednisone 20Mg] 40 mg PO DAILY 5 Days #10 tab Forms: Patient Portal Access Time of Disposition: 11:01 Quality - Quality Measures Quality Measures: N/A - Blood Pressure Screening Does Patient Have Any of the Following: No Systolic Measurement: ~ Screening for High Blood Pressure: < Pre-Hypertensive BP, F/U Documented > [G8950] Pre-Hypertensive Follow-up Interventions: Follow-up with rescreen every year.
[2019-05-21 10:19] LABS: ABSOLUTE NEUTROPHIL COUNT 7.76; BASO % 0.2 % (0-6); EOS % 1.3 % (0-6); GRAN % 77.2 % (47-80); HEMATOCRIT 39.5 % (42.0-52.0); HEMOGLOBIN 13.4 gm/dl (14.0-18.0); MEAN CELL VOLUME 85.3 fl (81-97); MEAN CORPUSCULAR HEMOGLOBIN 28.9 pg (27-33); MEAN CORPUSCULAR HGB CONC 33.9 g/dl (32-36); MEAN PLATELET VOLUME 9.1 fl (7.4-10.4); MONO % 10.3 % (0-9); PLATELET COUNT 244 K/uL (130-400); RED BLOOD COUNT 4.63 M/uL (4.40-5.70); RED CELL DISTRIBUTION WIDTH 13.4 % (11.5-14.5)
[2019-05-21 10:28] LABS: CREATININE 1.6 mg/dL (0.7-1.2)
[2019-05-21] MEDS ORDERED: PREDNISONE 20 MG TAB PO ONE (10:50)
--- NOTE | 2019-05-21 10:53 | RADIOLOGY REPORT ---
EXAMINATION: Left Foot, Minimum Three Views EXAM DATE: 05/21/2019 10:45 AM TECHNIQUE: AP, lateral, and oblique INDICATION: pain with gout hx, no trauma COMPARISON: None ENCOUNTER: Initial FINDINGS: There is diffuse soft tissue swelling. There is a 3 mm erosive defect with overhanging edges in the l ateral distal aspect of the proximal phalanx of the second digit, abutting the articular surface, wit h features compatible with history of gout. No additional osseous lesion. Plantar calcaneal spurring is seen. IMPRESSION: Erosive defect in the proximal phalanx of the second digit most likely related to history of gout. Co rrelate clinically. Diffuse soft tissue swelling. Dictated by: Joann Blanc MD on 05/21/2019 10:44 AM. .
[2019-05-21 11:01] LABS: ERYTHROCYTE SEDIMENTATION RATE 42 mm/hr (0-20)
== END 2019-05-21 11:25 | disposition home or self-care (01) ==
LOC: ER 09:27
DX: M10.072 Idiopathic gout, left ankle and foot (principal); I12.9 Hypertensive chronic kidney disease with stage 1 through stage 4 chronic kidney disease, or unspecified chronic kidney disease; N18.4 Chronic kidney disease, stage 4 (severe)
CPT/HCPCS: 99284 ×2; 84550; 85025; 85651; 80048; 73630; J7512